=== PATIENT | male | born 1945 | race African-American/Black ===

== ENCOUNTER 2016-09-25 07:28 | Inpatient (IN) ==
--- NOTE | 2016-09-25 15:42 | Event Note ---
Iodine-131 Therapy Date Performed: 09/25/2016 Radiopharmaceutical: 157 mCi I-131 orally. Clinical Information: Patient is status post thyroidectomy for cancer with uptake in the thyroid bed, consistent with residual thyroid tissue on follow-up scans. Patient will be treated with 150 mCi of radioactive iodine for complete thyroid ablation. No metastatic disease was evident on the post thyroidectomy scan. Comparison: Prior thyroid uptake scan 09/17/2016 Technique/Findings: History, physical findings and previous therapy were reviewed. Risks, benefits, precautions, alternatives and procedures of I-131 therapy were carefully explained to the patient and informed written consent was obtained from the patient. The patient received both verbal and written radiation safety instructions. Serum test was not required. The patient was given 157.2 mCi of I-131 orally at approximately 1340 hours while inpatient in Room 430. Patient will be monitored daily by Nuclear Medicine until discharge criteria met. Following discharge, the patient will be returned to the care of Dr. Luis Evans. Conclusion: 150 mCi of I-131 administered as therapy for post thyroidectomy ablation.
--- NOTE | 2016-09-26 07:47 | Oncology History&Physical ---
Assessment and Plan (1) Thyroid cancer Status: Acute Current Visit: Yes History of Present Illness History of present illness: Mr. Alejandra is a 70 year old male with a history of thyroid cancer status post thyroidectomy but had significant amount of residual thyroid tissue so he was set up for a radioactive iodine thyroid ablation. He received 150 mCi of I-131 orally yesterday. He is now admitted for observation until his radiation levels are within safe range. He has no complaints this morning. His level today was 25. Home Medications Medication Instructions Recorded Confirmed Type Amlodipine Besylate [Amlodipine 10 mg PO DAILY 09/25/16 09/25/16 History Besylate] Carvedilol [Carvedilol] 25 mg PO DAILY 09/25/16 09/25/16 History Clopidogrel Bisulfate [Clopidogrel] 75 mg PO DAILY 09/25/16 09/25/16 History Famotidine Tab [Pepcid Tab] 20 mg PO DAILY 09/25/16 09/25/16 History Furosemide [Furosemide] 40 mg PO DAILY 09/25/16 09/25/16 History Hydrocodone/Acetaminophen 1 tablet PO Q4HR PRN 09/25/16 09/25/16 History [Hydrocodon-Acetaminophn 10-325] Lisinopril [Lisinopril] 20 mg PO DAILY 09/25/16 09/25/16 History Meloxicam [Meloxicam] 7.5 mg PO DAILY 09/25/16 09/25/16 History Pantoprazole Tab [Protonix Tab] 40 mg PO DAILY 09/25/16 09/25/16 History Pioglitazone HCl [Pioglitazone HCl] 30 mg PO DAILY 09/25/16 09/25/16 History Pravastatin Sodium [Pravastatin 40 mg PO DAILY 09/25/16 09/25/16 History Sodium] Tamsulosin HCl [Tamsulosin HCl] 0.4 mg PO DAILY 09/25/16 09/25/16 History Zolpidem Tartrate [Zolpidem 10 mg PO BEDTIME PRN 09/25/16 09/25/16 History Tartrate] Allergies Allergy/AdvReac Type Severity Reaction Status Date / Time No Known Allergies Allergy Verified 09/25/16 08:27 Medical,Surgical,& Family Hx - Medical History Cardio: History of: Cerebrovascular Disease, Hypertension Endocrine: History of: Dyslipidemia, Thyroid Disorder Genitourinary: History of: Prostate Problems ("slow to go") - Surgical History Cardiac Surgeries: Sugical HX of: Cardiac Surgery (blocked artery 2013), Carotid Endarterectomy HEENT Surgeries: Surgical HX of: Carotid Endarterectomy - Family History Family History: Reports;: Family Cancer (sister breast ca), Family Diabetes ( sister, mother, brother), Family Hypertension (mother, sister,brother, father) - Social History Smoking Status: Never smoker 12 point system: reviewed and no additional remarkable complaints except as stated Exam - Constitutional Vitals: Period Temp Pulse Resp BP Sys/Maynard Pulse Ox Last 24 Hr 97.1 F-98.7 F 63-82 18-20 143-188/55-84 94-100 General appearance: normal weight, no acute distress - Head Head Exam: Present: normocephalic, atraumatic - Eye Eye Exam: Present: EOMI Pupils: Present: PERRL - ENT ENT exam: Present: normal exam, normal oropharynx - Neck Neck exam: Absent: lymphadenopathy, thyromegaly - Respiratory Respiratory exam: Present: CTAB. Absent: wheezes - Cardiovascular Cardiovascular exam: Present: RRR. Absent: JVD - GI/Abdominal GI/Abdominal exam: Present: soft. Absent: ascites, distended, firm, mass - Neurological Exam Neurological exam: Present: alert, oriented X3 - Psychiatric Psychiatric exam: Present: normal affect, normal mood - Skin Skin exam: Present: warm, dry
[2016-09-26] MEDS ORDERED: chlorproMAZINE INJ 50 MG in SODIUM CHLORIDE 0.9% 100 ML IV PRN (08:39)
[2016-09-26] MEDS ORDERED: MAGNESIUM HYDROXIDE SUSP 30 ML UDCUP PO PRN (08:39)
[2016-09-26] MEDS ORDERED: MYLANTA/LIDO VISC 2:1 300 ML BOTTLE SWISH/SWAL PRN (08:39)
[2016-09-26] MEDS ORDERED: guaiFENesin 200 MG/10 ML UDCUP PO PRN (08:39)
[2016-09-26] MEDS ORDERED: ALUMINUM/MAGNES/SIMETH MAX STR 30 ML UDCUP PO PRN (08:39)
[2016-09-26] MEDS ORDERED: ALPRAZolam 0.25 MG TABLET PO PRN (08:39)
[2016-09-26] MEDS ORDERED: traMADol 50 MG TABLET PO PRN (08:39)
[2016-09-26] MEDS ORDERED: LOPERAMIDE 2 MG CAPSULE PO PRN ×2 (08:39)
[2016-09-26] MEDS ORDERED: MYLANTA/LIDO VISC 2:1 300 ML BOTTLE SWISH/SPIT PRN (08:39)
[2016-09-26] MEDS ORDERED: diphenhydrAMINE CAP 25 MG CAPSULE PO PRN (08:39)
[2016-09-26] MEDS ORDERED: ACETAMINOPHEN 325 MG TABLET PO PRN (08:39)
[2016-09-26] MEDS ORDERED: LACTULOSE 20 GM/30 ML UDCUP PO PRN (08:39)
[2016-09-26] MEDS ORDERED: ONDANSETRON 4 MG/2 ML VIAL IV PRN (08:39)
[2016-09-26] MEDS ORDERED: BENZTROPINE 2 MG/2 ML AMP IV PRN (08:39)
[2016-09-26] MEDS ORDERED: PROMETHAZINE INJ 25 MG in SODIUM CHLORIDE 0.9% 50 ML IV PRN (08:39)
[2016-09-26] MEDS ORDERED: chlorproMAZINE INJ 25 MG in SODIUM CHLORIDE 0.9% 100 ML IV PRN (08:39)
[2016-09-26] MEDS ORDERED: TEMAZEPAM 7.5 MG CAPSULE PO PRN (08:39)
[2016-09-26] MEDS ORDERED: chlorproMAZINE 25 MG TABLET PO PRN (08:39)
[2016-09-26] MEDS ORDERED: ZALEPLON 5 MG CAPSULE PO PRN (11:34)
[2016-09-26] MEDS: PRAVASTATIN 40 MG TABLET PO SCH (13:23)
[2016-09-26] MEDS: PIOGLITAZONE 15 MG TABLET PO SCH (13:23)
[2016-09-26] MEDS: MELOXICAM 7.5 MG TABLET PO SCH (13:23)
[2016-09-26] MEDS: FUROSEMIDE 40 MG TABLET PO SCH (13:24)
[2016-09-26] MEDS: CARVEDILOL 25 MG TABLET PO SCH (13:24)
[2016-09-26] MEDS: LISINOPRIL 20 MG TABLET PO SCH (13:24)
[2016-09-26] MEDS: CLOPIDOGREL 75 MG TABLET PO SCH (13:24)
[2016-09-26] MEDS: amLODIPine 10 MG TABLET PO SCH (13:24)
[2016-09-26] MEDS: PANTOPRAZOLE 40 MG TABLET PO SCH (13:25)
[2016-09-26] MEDS: FAMOTIDINE 20 MG TABLET PO SCH (13:25)
[2016-09-26] MEDS: TAMSULOSIN 0.4 MG CAPSULE PO SCH (21:12)
--- NOTE | 2016-09-27 05:54 | Oncology Progress Note ---
Assessment and Plan (1) Thyroid cancer Status: Acute Current Visit: Yes (2) S/P radioactive iodine thyroid ablation Status: Acute Current Visit: Yes Oncology Subjective PN Interval history: Mr. Alejandra is doing well. He does complain of a headache upon rising. He has some sinus congestion and dizziness as well. I think this is sinus related so offered a dose of dexamethasone but he refused. Will continue to follow his radiation levels and will discharge him once they are within safe range. I anticipate this will be tomorrow morning. If he does reach safe range later today, he could be discharged home at that time. Exam - Constitutional Vitals: Period Temp Pulse Resp BP Sys/Maynard Pulse Ox Last 24 Hr 98.1 F-99 F 59-89 19-20 114-184/56-84 93-97 General appearance: normal weight, no acute distress - Head Head Exam: Present: normocephalic, atraumatic - Eye Eye Exam: Present: EOMI Pupils: Present: PERRL - ENT ENT exam: Present: normal exam, normal oropharynx - Neck Neck exam: Absent: lymphadenopathy, thyromegaly - Respiratory Respiratory exam: Present: CTAB. Absent: wheezes - Cardiovascular Cardiovascular exam: Present: RRR. Absent: JVD
[2016-09-27] MEDS: FUROSEMIDE 40 MG TABLET PO SCH (09:38)
[2016-09-27] MEDS: CARVEDILOL 25 MG TABLET PO SCH (09:38)
[2016-09-27] MEDS: amLODIPine 10 MG TABLET PO SCH (09:38)
[2016-09-27] MEDS: FAMOTIDINE 20 MG TABLET PO SCH (09:38)
[2016-09-27] MEDS: MELOXICAM 7.5 MG TABLET PO SCH (09:39)
[2016-09-27] MEDS: PIOGLITAZONE 15 MG TABLET PO SCH (09:39)
[2016-09-27] MEDS: CLOPIDOGREL 75 MG TABLET PO SCH (09:39)
[2016-09-27] MEDS: LISINOPRIL 20 MG TABLET PO SCH (09:39)
[2016-09-27] MEDS: PRAVASTATIN 40 MG TABLET PO SCH (09:39)
[2016-09-27] MEDS: PANTOPRAZOLE 40 MG TABLET PO SCH (09:39)
[2016-09-27] MEDS: TAMSULOSIN 0.4 MG CAPSULE PO SCH (20:40)
--- NOTE | 2016-09-28 08:49 | Oncology Progress Note ---
Assessment and Plan (1) Thyroid cancer Status: Acute Current Visit: Yes (2) S/P radioactive iodine thyroid ablation Status: Acute Current Visit: Yes Oncology Subjective PN Interval history: Mr. Alejandra is doing well today. We are still awaiting his radiation levels to return to safe ranges. Given the number it was at yesterday I do not anticipate it to be low enough for discharge today. We will be denzel if it is low enough by tomorrow. Once he does return to a safe range we will discharge him home with routine follow-up. I will recheck later today to see what level he is at. Exam - Constitutional Vitals: Period Temp Pulse Resp BP Sys/Maynard Pulse Ox Last 24 Hr 96.7 F-98.7 F 57-65 18-21 125-144/57-73 96-100
[2016-09-28] MEDS: MELOXICAM 7.5 MG TABLET PO SCH (09:38)
[2016-09-28] MEDS: FUROSEMIDE 40 MG TABLET PO SCH (09:40)
[2016-09-28] MEDS: amLODIPine 10 MG TABLET PO SCH (09:41)
[2016-09-28] MEDS: PIOGLITAZONE 15 MG TABLET PO SCH (09:41)
[2016-09-28] MEDS: PRAVASTATIN 40 MG TABLET PO SCH (09:41)
[2016-09-28] MEDS: LISINOPRIL 20 MG TABLET PO SCH (09:43)
[2016-09-28] MEDS: CARVEDILOL 25 MG TABLET PO SCH (09:43)
[2016-09-28] MEDS: FAMOTIDINE 20 MG TABLET PO SCH (19:26)
[2016-09-28] MEDS: CLOPIDOGREL 75 MG TABLET PO SCH (19:27)
[2016-09-28] MEDS: PANTOPRAZOLE 40 MG TABLET PO SCH (19:27)
[2016-09-28] MEDS: TAMSULOSIN 0.4 MG CAPSULE PO SCH (20:33)
[2016-09-29 08:28] VITALS: BP 148/77
[2016-09-29] MEDS: PIOGLITAZONE 15 MG TABLET PO SCH (09:39)
[2016-09-29] MEDS: MELOXICAM 7.5 MG TABLET PO SCH (09:39)
[2016-09-29] MEDS: PRAVASTATIN 40 MG TABLET PO SCH (09:39)
[2016-09-29] MEDS: CARVEDILOL 25 MG TABLET PO SCH (09:39)
[2016-09-29] MEDS: FUROSEMIDE 40 MG TABLET PO SCH (09:40)
[2016-09-29] MEDS: amLODIPine 10 MG TABLET PO SCH (09:40)
[2016-09-29] MEDS: LISINOPRIL 20 MG TABLET PO SCH (09:40)
[2016-09-29] MEDS: FAMOTIDINE 20 MG TABLET PO SCH (09:41)
[2016-09-29] MEDS: CLOPIDOGREL 75 MG TABLET PO SCH (09:41)
[2016-09-29] MEDS: PANTOPRAZOLE 40 MG TABLET PO SCH (09:42)
--- NOTE | 2016-09-29 09:53 | Discharge Summary ---
Hospital Course - Hospital Course Hospital Course: Mr. Alejandra was admitted status post thyroid ablation. His radiation levels slowly decline in her safe levels today. He will be discharged home and will keep his previously scheduled follow-up. Diagnosis - Discharge Diagnosis (1) Thyroid cancer Status: Acute (2) S/P radioactive iodine thyroid ablation Status: Acute Discharge Plan - Discharge Data Disposition: Disch To Home/Self Care Condition at Discharge: Stable Discharge Diet: advance to your usual diet Activity: resume usual activities as tolerated Hygiene: no restrictions Weight Bearing at Discharge: full weight bearing Driving: no restrictions - Discharge Medications New Levothyroxine Tab [Synthroid Tab] 100 mcg PO DAILY@0700 #30 tablet Continue Zolpidem Tartrate 10 mg PO BEDTIME PRN PRN Reason: Sleep Tamsulosin HCl 0.4 mg PO DAILY Pioglitazone HCl 30 mg PO DAILY Meloxicam 7.5 mg PO DAILY Lisinopril 20 mg PO DAILY Hydrocodone/Acetaminophen [Hydrocodon-Acetaminophn 10-325] 1 tablet PO Q4HR PRN PRN Reason: Pain Famotidine Tab [Pepcid Tab] 20 mg PO DAILY Clopidogrel Bisulfate [Clopidogrel] 75 mg PO DAILY Amlodipine Besylate 10 mg PO DAILY Pantoprazole Tab [Protonix Tab] 40 mg PO DAILY Pravastatin Sodium 40 mg PO DAILY Furosemide 40 mg PO DAILY Carvedilol 25 mg PO DAILY - Follow Up or Referral - Forms/Instructions Exam - Constitutional Vitals: Period Temp Pulse Resp BP Sys/Maynard Pulse Ox Last 24 Hr 97.5 F-98.3 F 60-65 18-20 117-158/58-77 96-100 Discharge Results Labs on day of discharge: Labs from last 24 hours 09/29/16 07:21 POC Glucose 190 H DS: Provider Date of admission: 09/25/16 08:00 Primary care physician: . No PCP Attending physician on admission: Cy Landers MD Discharging clinician: Cy Landers MD
== END 2016-09-29 11:20 | disposition home or self-care (01) | DRG 645 ==
LOC: N.4E 07:28 → EDSTATUS 13:00
PROVIDERS: ADMIT Specialist; ATTEND Specialist